=== PATIENT | female | born 1985 | race Two or more races ===

== ENCOUNTER 2019-12-17 06:38 | Outpatient (CLI) | payer MEDICAID | END 2019-12-17 23:59 | disposition home or self-care (01) | LOC: LAB 06:38 | PROVIDERS: ATTEND Specialist | DX: Z01.812 Encounter for preprocedural laboratory examination (principal); Z11.59 Encounter for screening for other viral diseases | CPT/HCPCS: C9803; U0003 ==

== ENCOUNTER 2019-12-22 06:22 | Day surgery (SDC) | payer MEDICAID ==
[~2019-12-22] VITALS: Ht 165.1 cm; Wt 83.5 kg
[2019-12-22 06:30] VITALS: BP 106/75
[2019-12-22] MEDS ORDERED: HEMOSTATIC MATRIX 8 ML 1 EACH PAD MC ONE (06:49)
[2019-12-22] MEDS ORDERED: LIDOCAINE HCL/MPF 1% 30 ML VIAL IJ ONE (06:49)
[2019-12-22] MEDS ORDERED: CEFAZOLIN 1 GM ONE (06:49)
[2019-12-22] MEDS ORDERED: BUPIVACAINE MPF 0.5% W/EPI INJ 30 ML VIAL ONE (06:49)
[2019-12-22] MEDS ORDERED: METHYLENE BLUE 10 ML VIAL ONE (06:50)
[2019-12-22] MEDS ORDERED: methylPREDNISolone ACETATE 80 MG/ML VIAL ONE ×2 (06:50→08:55)
--- NOTE | 2019-12-22 06:56 | NUR ---
RN NOTES: RECEIVED CALL FROM OR STAFF, INFORMED THERE IS PRE-OP MEDS TO BE GIVEN TO PT, HAVE THE PT TAKE THE MEDS WITH SIPS OF WATER, AND TO DO STAT URINE TEST. ALL ORDERS FOLLOWS: GABAPENTIN 900 MG TAB PO, TORADOL 30MG IVP, TYLENOL 650 MG TAB PO, CELEBREX 200 MG TAB PO, OXYCONTIN 20MG TAB PO. ALL ORDERS READ BACK AND VERIFIED.
[2019-12-22] MEDS ORDERED: NALOXONE HCL 0.4 MG/ML AMPUL IV PRN (07:00)
--- NOTE | 2019-12-22 07:04 | NUR ---
MS RN NOTES PATIENT ARRIVED TO UNIT 0630; PATIENT AMBULATORY, AWAKE, A/OX4; BREATHING EVEN AND UNLABORED; TOLERATING ROOM AIR WELL; NO SOB NOTED; PATIENT REPORTS NKA TO MEDICATION/FOOD; L FA #20 SL OBTAINED; FLUSHING WELL; NO S/S OF REDNESS OR INFILTRATION NOTED; CONSENT SIGNED; CHECK LIST DONE; BELONGINGS LIST CHECKED; VITAL SIGNS STABLE; AWAITING PRE-OP ORDERS; CHARGE NURSE AWARE; OR WAITING FOR PATIENT; WILL ENDORSE JUAN RAMON TO ONCOMING NURSE
[2019-12-22] MEDS ORDERED: MIDAZOLAM HCL 2 MG/2ML VIAL ONE (07:05)
[2019-12-22] MEDS ORDERED: FENTANYL PF 250MCG/5ML AMPUL ONE (07:05)
[2019-12-22] MEDS ORDERED: FAMOTIDINE/PF INJ 20 MG/2 ML VIAL IV ONE (07:07)
[2019-12-22] MEDS ORDERED: ROCURONIUM BROMIDE 50 MG/5 ML ONE (07:07)
--- NOTE | 2019-12-22 07:07 | NUR ---
RN NOTES: SPOKED WITH PHARMACY [facility] TO PLEASE VERIFY THE MEDS FOR PT, PT GOING TO SURGERY, NEEDS TO RECEIVE PRE-OP MEDS.
[2019-12-22] MEDS ORDERED: ACETAMINOPHEN 325 MG TABLET PO STA (07:16)
[2019-12-22] MEDS ORDERED: oxyCODONE HCL SR 20MG TAB.SR.12H PO STA (07:16)
[2019-12-22] MEDS ORDERED: CELECOXIB 100 MG CAPSULE PO STA (07:16)
[2019-12-22] MEDS ORDERED: KETOROLAC TROMETHAMINE INJ 30 MG/ML VIAL IV STA (07:16)
[2019-12-22] MEDS ORDERED: GABAPENTIN 300 MG CAPSULE PO STA (07:16)
--- NOTE | 2019-12-22 07:40 | NUR ---
RN NOTES PER OR, PATIENT NEEDS TO HAVE PRE-OP MEDICATIONS PRIOR TO PROCEDURE; CHARGE NURSE INPUTTED ORDERS; PER OR, THEY WILL CALL PHARMACY TO MAKE SURE THEY ARE ABLE TO TAKE THE MEDS OUT OF THEIR PYXIS; PER OR, THEY SPOKE WITH PHARMACY AND THEY ARE UNABLE TO DO SO; MEDICATION PULLED OUT FROM OUR PYXIS AND ENDORSED TO OR STAFF; OR STAFF CAME BACK UP TO UNIT AND ASKED IF WE ARE ABLE TO SCAN THE MEDICATIONS FOR THEM THEY ARE UNABLE TO DO SO WELL; CHARGE NURSE AWARE; INFORMED OR STAFF I AM UNABLE TO SCAN I DID NOT ADMINISTER MEDICATIONS TO PATIENT; OR WILL DOCUMENT IN PATIENT'S CHECKLIST MEDICATIONS ADMINISTERED AND WILL SIGN OFF; WILL ENDORSE JUAN RAMON TO ONCOMING SHIFT
[2019-12-22 11:00] VITALS: BP 109/60
--- NOTE | 2019-12-22 11:00 | NUR ---
m/s business solutions architect: notes received pt from recovery room with dx: s/p microdiscectomy L5-S1. surgical dressing to lower back intact, no drainage/discharge noted. pt sleepy at this time, but arousable. clear liquid diet ordered. oriented to room and surroundings. no distress noted. will continue to monitor. Addendum: 12/22/19 at 1412 by BLANQUITA CARRANZA LVN admitted this 34 years old female pt with dx: s/p microdiscectomy L5-S1. awake, but sleepy. vss, afebrile. pt aware that she is for discharge today. also has discharge post op instructions for microdiscectomy from dr. sullivan. instructed to call for assistance. will continue to monitor.
[2019-12-22 11:15] VITALS: BP 110/66
[2019-12-22 11:45] VITALS: BP 117/54
[2019-12-22 12:44] VITALS: BP 91/47
[2019-12-22] MEDS ORDERED: HYDR-3980 MT (13:07)
[2019-12-22] MEDS ORDERED: NORE1PAT7 TP (13:07)
[2019-12-22] MEDS ORDERED: NITR100C15 MT (13:07)
[2019-12-22 13:19] VITALS: BP 125/75
--- NOTE | 2019-12-22 13:30 | NUR ---
m/s public safety teacher: notes vitals more stable now. pt ready for discharge. waiting in car as stated.
--- NOTE | 2019-12-22 13:45 | NUR ---
m/s line erector: notes discharge instructions given to pt and verbalized understanding. pt wish to rest for now then will go home once ready as stated. instructed to call for assistance. vss. will continue to monitor.
--- NOTE | 2019-12-22 14:45 | NUR ---
m/s rubber and plastics worker: notes pt called and ready to go home. h/l removed with tip intact. pt called her . pt getting dress.
--- NOTE | 2019-12-22 15:00 | NUR ---
m/s nerve specialist: notes pt c/o slight dizziness, n/v; vomited small amount of liquid. ask pt to stay longer, but refuses and wants to go home. pt rested for a few minutes; offered once more, but pt feels better a few minutes of rest and wants to leave.
--- NOTE | 2019-12-22 15:10 | NUR ---
m/s assembler unit: discharged discharge home in stable condition with all valuables and d'c papers accompanied by via private car.
[2019-12-23 20:12] VITALS: BP 132/65
== END 2019-12-22 18:00 | disposition home or self-care (01) ==
LOC: DS 06:22 → MED 06:27 → UNDOADMIN 06:27 → MED 09:54 → UNDODISIN 15:10 → DS 18:00
PROVIDERS: ATTEND Specialist
DX: M51.16 Intervertebral disc disorders with radiculopathy, lumbar region (principal); E66.3 Overweight
CPT/HCPCS: 36415; 63030; 72020; 84703; 86850; 87081; A6209; A6402; J0690 ×2; J1040; J1100; J1885; J2250; J2704; J2765; J3010; J3490 ×5; Q9968; G0378